=== PATIENT | male | born 1955 | race African-American/Black ===

== ENCOUNTER 2019-03-29 13:14 | Inpatient (IN) | payer MEDICARE, BC ==
[~2019-03-29] VITALS: Ht 175.3 cm; Wt 100.7 kg
[2019-03-29] MEDS ORDERED: SODIUM CHLORIDE 0.9% 1,000 ML IV ONE (13:38)
[2019-03-29 14:11] LABS: BASOPHILS % 0.5 % (0.0-2.0); EOSINOPHILS % 1.5 % (0.0-5.0); HEMATOCRIT. 43.3 % (42.0-52.0); HEMOGLOBIN. 13.8 g/dL (14.0-18.0); LYMPHOCYTES % 29.6 % (20.0-50.0); MEAN CORPUSCULAR HEMOGLOBIN 23.7 pg (28.0-32.0); MEAN CORPUSCULAR VOLUME 74.3 fL (80.0-94.0); MEAN PLATELET VOLUME 9.6 fl (7.4-10.4); MONOCYTES % 8.6 % (2.0-8.0); NEUTROPHILS % 59.8 % (40.0-76.0); PLATELET 174 x1000/uL (130-400); RED BLOOD CELL COUNT 5.83 mill/uL (4.7-6.1); RED CELL DISTRIBUTION WIDTH 16.6 % (11.6-14.6)
[2019-03-29 14:17] LABS: CHLORIDE 105 mEq/L (98-107)
[2019-03-29] MEDS ORDERED: ASPIRIN 325MG EC TABLET PO ONE (16:00)
[2019-03-29 17:39] VITALS: BP 154/80
[2019-03-29 17:43] VITALS: BP 154/80
[2019-03-29] MEDS ORDERED: DEXTROSE 50% WATER 50ML SYRINGE IV PRN (18:30)
[2019-03-29] MEDS ORDERED: ONDANSETRON HCL 4MG/2ML INJ IV PRN (19:00)
[2019-03-29] MEDS ORDERED: CLONIDINE 0.1MG TABLET PO PRN (19:00)
[2019-03-29] MEDS ORDERED: ACETAMINOPHEN 325MG TABLET PO PRN (19:00)
[2019-03-29] MEDS: SODIUM CHLORIDE 0.9% 1,000 ML IV SCH (19:18)
[2019-03-29 20:40] VITALS: BP 139/67
[2019-03-29 20:41] VITALS: BP_SYST 171; BP_SYST 175; BP_DIAS 87
[2019-03-29] MEDS: BLOOD SUGAR DIAGNOSTIC STRIP TEST SCH (21:00)
[2019-03-29] MEDS: INSULIN LISPRO 100 UNITS/ML SUBCUT SCH (22:19)
[2019-03-30] VITALS (9 sets, daily range): BP systolic 128–161; BP diastolic 59–96
[2019-03-30] MEDS: SODIUM CHLORIDE 0.9% 1,000 ML IV SCH (05:36)
[2019-03-30] MEDS ORDERED: INSU100I28 SQ (06:09)
[2019-03-30] MEDS ORDERED: METO-411 MT (06:09)
[2019-03-30] MEDS ORDERED: NITR0.4T49 SL (06:09)
[2019-03-30] MEDS ORDERED: LOSA50TA3 MT (06:09)
[2019-03-30] MEDS ORDERED: ALIR75PE SQ (06:09)
[2019-03-30] MEDS ORDERED: ASPI-1393 MT (06:09)
[2019-03-30] MEDS ORDERED: IBUP-2029 MT (06:09)
[2019-03-30] MEDS ORDERED: ASCO500C15 PO (06:09)
[2019-03-30] MEDS ORDERED: TICA90TA MT (06:09)
[2019-03-30] MEDS ORDERED: HYDR-4001 MT (06:09)
[2019-03-30] MEDS ORDERED: CHOL100034 MT (06:09)
[2019-03-30] MEDS ORDERED: ATOR-2 MT (06:09)
[2019-03-30] MEDS ORDERED: INSLIS SUBCUT (06:09)
[2019-03-30] MEDS ORDERED: ISOS10TA2 MT (06:09)
[2019-03-30] MEDS ORDERED: OMEG100017 MT (06:09)
[2019-03-30] MEDS ORDERED: COLC0.6C3 MT (06:09)
[2019-03-30] MEDS: BLOOD SUGAR DIAGNOSTIC STRIP TEST SCH ×4 (07:33→21:00)
[2019-03-30] MEDS ORDERED: LOSARTAN POTASSIUM 50 MG TABLET PO ONE (09:30)
[2019-03-30] MEDS ORDERED: ALLOPURINOL 100 MG TABLET PO NR (09:30)
[2019-03-30] MEDS: ASPIRIN 81MG TABLET PO SCH (10:22)
[2019-03-30] MEDS: ISOSORBIDE MONONITRATE 60MG TABLET SR 24HR PO SCH (10:23)
[2019-03-30] MEDS: TICAGRELOR 90 MG TABLET PO SCH ×2 (10:23→18:33)
[2019-03-30] MEDS: COLCHICINE 0.6MG TABLET PO SCH ×2 (10:24→22:14)
[2019-03-30] MEDS: METOPROLOL TARTRATE 50MG TABLET PO SCH ×2 (10:24→22:05)
[2019-03-30] MEDS: INSULIN GLARGINE UD 100 UNITS/ML SYR SUBCUT SCH ×2 (10:25→22:01)
[2019-03-30] MEDS: INSULIN LISPRO 100 UNITS/ML SUBCUT SCH ×6 (10:27→22:01)
[2019-03-30 12:44] LABS: CLARITY URINE CLEAR (CLEAR); COLOR URINE YELLOW (YELLOW); KETONES URINE NEGATIVE (NEGATIVE); LEUKOCYTE ESTERASE URINE NEGATIVE (NEGATIVE); NITRITE URINE NEGATIVE (NEGATIVE); OCCULT BLOOD URINE NEGATIVE (NEGATIVE); PH URINE 5.5 (4.5-8.0); PROTEIN URINE NEGATIVE (NEGATIVE)
[2019-03-30 12:52] LABS: BASOPHILS % 0.4 % (0.0-2.0); EOSINOPHILS % 1.9 % (0.0-5.0); HEMATOCRIT. 41.2 % (42.0-52.0); HEMOGLOBIN. 13.3 g/dL (14.0-18.0); LYMPHOCYTES % 32.2 % (20.0-50.0); MEAN CORPUSCULAR VOLUME 74.5 fL (80.0-94.0); MONOCYTES % 7.4 % (2.0-8.0); NEUTROPHILS % 58.1 % (40.0-76.0); PLATELET 172 x1000/uL (130-400); RED BLOOD CELL COUNT 5.54 mill/uL (4.7-6.1); RED CELL DISTRIBUTION WIDTH 16.9 % (11.6-14.6)
[2019-03-30 13:06] LABS: CHLORIDE 108 mEq/L (98-107)
[2019-03-30] MEDS ORDERED: ATORVASTATIN CALCIUM 40MG TABLET PO SCH (21:00)
[2019-03-30] MEDS ORDERED: MAGNESIUM/ALUMINUM HYDROXIDE/SIMETHICONE 30ML UDC PO PRN (22:30)
[2019-03-30] MEDS: FAMOTIDINE 20MG/2ML VIAL IV SCH (22:41)
[2019-03-31 00:22] VITALS: BP 165/79
[2019-03-31 04:00] VITALS: BP 131/69
[2019-03-31 06:02] LABS: CHLORIDE 109 mEq/L (98-107)
[2019-03-31 06:14] LABS: BASOPHILS % 0.4 % (0.0-2.0); EOSINOPHILS % 2.4 % (0.0-5.0); HEMATOCRIT. 42.3 % (42.0-52.0); HEMOGLOBIN. 13.6 g/dL (14.0-18.0); LYMPHOCYTES % 46.3 % (20.0-50.0); MEAN CORPUSCULAR HEMOGLOBIN 23.9 pg (28.0-32.0); MEAN CORPUSCULAR VOLUME 74.2 fL (80.0-94.0); MEAN PLATELET VOLUME 9.6 fl (7.4-10.4); MONOCYTES % 7.5 % (2.0-8.0); NEUTROPHILS % 43.4 % (40.0-76.0); PLATELET 171 x1000/uL (130-400); RED CELL DISTRIBUTION WIDTH 16.7 % (11.6-14.6)
[2019-03-31 06:16] LABS: LDL CHOLESTEROL 59 mg/dL (5-100)
[2019-03-31 06:21] LABS: HDL CHOLESTEROL 34 mg/dL (40-59)
[2019-03-31] MEDS: INSULIN LISPRO 100 UNITS/ML SUBCUT SCH ×2 (07:02→09:59)
[2019-03-31] MEDS: BLOOD SUGAR DIAGNOSTIC STRIP TEST SCH (07:02)
[2019-03-31] MEDS: ASPIRIN 81MG TABLET PO SCH (09:39)
[2019-03-31] MEDS: FAMOTIDINE 20MG/2ML VIAL IV SCH (09:39)
[2019-03-31] MEDS: TICAGRELOR 90 MG TABLET PO SCH (09:39)
[2019-03-31] MEDS: COLCHICINE 0.6MG TABLET PO SCH (09:39)
[2019-03-31] MEDS: ISOSORBIDE MONONITRATE 60MG TABLET SR 24HR PO SCH (09:40)
[2019-03-31] MEDS: METOPROLOL TARTRATE 50MG TABLET PO SCH (09:41)
[2019-03-31] MEDS: INSULIN GLARGINE UD 100 UNITS/ML SYR SUBCUT SCH (09:46)
[2019-03-31 17:11] LABS: *AMPHETAMINES SCREEN URINE NEGATIVE (NEGATIVE); *BARBITURATES SCREEN URINE NEGATIVE (NEGATIVE); *BENZODIAZEPINES SCREEN URINE NEGATIVE (NEGATIVE); *COCAINE SCREEN URINE NEGATIVE (NEGATIVE); METHADONE URINE SCREEN NEGATIVE (NEGATIVE); OPIATES URINE SCREEN NEGATIVE (NEGATIVE)
[2019-03-31 17:12] LABS: CANNABINOID URINE SCREEN NEGATIVE (NEGATIVE); PHENCYCLIDINE URINE SCREEN NEGATIVE (NEGATIVE)
== END 2019-03-31 11:06 | disposition left against medical advice (07) | DRG 74 ==
LOC: ER 13:14 → 6WST 16:31 → EDBEDREQTM 16:35 → EDBEDREQ 16:35 → ENRESERV 16:46
PROVIDERS: ADMIT Internal Medicine; ATTEND Internal Medicine
DX: G90.8 Other disorders of autonomic nervous system (principal); I16.1 Hypertensive emergency; E66.9 Obesity, unspecified; E78.5 Hyperlipidemia, unspecified; M10.9 Gout, unspecified; I95.9 Hypotension, unspecified; N28.9 Disorder of kidney and ureter, unspecified; E11.40 Type 2 diabetes mellitus with diabetic neuropathy, unspecified; I25.10 Atherosclerotic heart disease of native coronary artery without angina pectoris; I10 Essential (primary) hypertension; Z53.21 Procedure and treatment not carried out due to patient leaving prior to being seen by health care provider; Z79.4 Long term (current) use of insulin; Z82.49 Family history of ischemic heart disease and other diseases of the circulatory system; Z95.5 Presence of coronary angioplasty implant and graft; Z79.82 Long term (current) use of aspirin; Z79.899 Other long term (current) drug therapy; Z68.32 Body mass index [BMI] 32.0-32.9, adult; I25.2 Old myocardial infarction
CPT/HCPCS: 36415; 71045; 80048; 80061; 80305; 81003; 82962; 83036; 83735; 83880; 84443; 84484; 85379; 93005; 93306; 93880; 93970; 96360; 99285; J1815; J3490; J7030; J8499